=== PATIENT | female | born 2000 | race Caucasian/White ===

== ENCOUNTER 2021-11-15 15:56 | Emergency (ER) | payer SELFPAY ==
[~2021-11-15] VITALS: Ht 172.7 cm; Wt 81.0 kg
--- NOTE | 2021-11-15 16:19 | NUR ---
BIB CAREGIVER FOR C/O ABDOMINAL PAIN 06/30 AND DIARRHEA X1 DAY. ABDOMEN SOFT AND NON-DISTENDED. RESPIRATION REGULAR AND UNLABORED. WILL CONTINUE TO MONITOR THE PATIENT.
--- NOTE | 2021-11-15 17:33 | NUR ---
urine collected and sent to the lab
--- NOTE | 2021-11-15 17:57 | NUR ---
US tech at the bedside
[2021-11-15 18:05] LABS: BILIRUBIN,URINE NEGATIVE (NEGATIVE); COLOR,URINE YELLOW (YELLOW); LEUKOCYTE ESTERASE ,URINE NEGATIVE (NEGATIVE); NITRITE, URINE NEGATIVE (NEGATIVE); PH,URINE 5.5 (5.0-8.0); PROTEIN,URINE NEGATIVE (NEGATIVE); UGLUCOSE NEGATIVE (NEGATIVE); UROBILINOGEN,URINE 0.2 EU/dL (0.2)
[2021-11-15 18:07] LABS: BASOPHILS % (AUTO) 0.2 % (0.0-2.0); EOSINOPHILS % (AUTO) 0.2 % (0.0-6.0); HEMATOCRIT 39 % (33-45); HEMOGLOBIN 12.9 g/dL (11.5-14.8); LYMPHOCYTES # (AUTO) 1.2 K/uL (0.8-4.8); LYMPHOCYTES % (AUTO) 7.9 % (20.0-44.0); MEAN CORPUSCULAR HGB CONC 33 g/dl (31.0-36.0); MEAN CORPUSCULAR VOLUME 89 fL (82-100); MONOCYTES # (AUTO) 0.7 K/uL (0.1-1.30); MONOCYTES % (AUTO) 4.4 % (2.0-12.0); NEUTROPHILS # (AUTO) 13.2 K/uL (1.8-8.9); NEUTROPHILS % (AUTO) 87.3 % (43.0-81.0); PLATELET COUNT (AUTO) 268 K/uL (150-450); RED BLOOD CELL COUNT(AUTO) 4.37 MIL/uL (4.0-5.2); WHITE BLOOD COUNT (AUTO) 15.1 K/uL (4.3-11.0)
[2021-11-15 18:17] LABS: CALCIUM, SERUM 8.3 mg/dL (8.5-10.1); CREATININE 0.9 mg/dL (0.6-1.3); POTASSIUM 3.6 mmol/L (3.5-5.1)
[2021-11-15 18:33] LABS: ALBUMIN 3.9 g/dL (3.4-5.0); BILIRUBIN,DIRECT 0.1 mg/dL (0.0-0.2); BILIRUBIN,TOTAL 0.1 mg/dL (0.2-1.0); TOTAL PROTEIN, SERUM 7.4 g/dL (6.4-8.2)
[2021-11-15] MEDS ORDERED: IV NS 0.9% 250 ML IV ONE (19:05)
[2021-11-15] MEDS ORDERED: IOHEXOL-350 100 ML VIAL IV ONE (19:05)
[2021-11-15] MEDS ORDERED: IOHEXOL-300 100 ML VIAL IV ONE (19:07)
--- NOTE | 2021-11-15 19:29 | NUR ---
REPORT GIVEN TO NURSE [place] FOR MIKHAIL
[2021-11-15] MEDS ORDERED: AMOX/CLAVULANATE 875 MG TABLET ONE (20:22)
[2021-11-15] MEDS ORDERED: AMOX-430 PO (20:27)
[2021-11-15] MEDS ORDERED: AMOX/CLAVULANATE 875 MG TABLET PO ONE (20:30)
--- NOTE | 2021-11-15 20:37 | NUR ---
IV removed. Catheter intact and site benign. Pressure and 4x4 applied to site. No bleeding noted. Patient discharged to home in stable condition. Written and verbal after care instructions given. Patient verbalizes understanding of instruction.
[2021-11-15 20:39] VITALS: BP 125/71
== END 2021-11-15 20:39 | disposition home or self-care (01) ==
LOC: ER 16:08
DX: K52.9 Noninfective gastroenteritis and colitis, unspecified (principal); Z88.8 Allergy status to other drugs, medicaments and biological substances
CPT/HCPCS: 36415; 74177; 76856; 80048; 80076; 81003; 83690; 84703; 85025; 99285; J7050; Q9967